=== PATIENT | male | born 1960 ===

== ENCOUNTER 2023-05-23 20:46 | Emergency (ER) | payer MEDICAID ==
[2023-05-23] MEDS: Ibuprofen 600 MG Tab PO ONE (21:36)
[2023-05-24] MEDS: hydrOXYzine HCl 25 MG Tab PO ONE (01:09)
== END 2023-05-24 01:31 | disposition other institution (70) ==
LOC: JP.ED 20:46
DX: S80.11XA Contusion of right lower leg, initial encounter (principal); F10.10 Alcohol abuse, uncomplicated; Z88.2 Allergy status to sulfonamides; W19.XXXA Unspecified fall, initial encounter
CPT/HCPCS: 36415; 73590; 80307; 99283; 99285; A9270